=== PATIENT | male | born 1935 | race Caucasian/White ===

== ENCOUNTER 2022-09-04 07:00 | Inpatient (IN) | payer MEDICARE ==
[2022-09-04] MEDS ORDERED: Pantoprazole 40 MG VIAL ONE (07:37)
[2022-09-04 07:47] LABS: Hemoglobin 7.7 g/dL (13.5-17.5); Mean Corpuscular HGB CONC 32.6 g/dL (32.0-36.0); Mean Corpuscular Hemoglobin 29.2 pg (27.0-33.0); Mean Corpuscular Volume 89.4 fl (81.2-95.1); Mean Platelet Volume 12.3 fl (7.4-10.4); Platelet Count 132 10x3/uL (150-450); RBC Distribution Width 15.6 % (11.5-14.5); Red Blood Cell (RBC) Count 2.64 10x6/uL (4.32-5.72); White Blood Cell (WBC) Count 13.2 10x3/uL (3.5-10.5)
[2022-09-04 07:48] LABS: INR-International Normal Ratio 1.1; PTT 22.5 sec (22.0-33.0); Prothrombin Time 11.9 sec (9.5-12.1)
[2022-09-04 07:54] LABS: ALT (SGPT) 13 U/L (8-55); AST (SGOT) 22 U/L (5-34); Albumin 3.7 g/dL (3.4-4.8); Alkaline Phosphatase 53 U/L (40-110); Anion Gap 14 mmol/L (10-20); BUN (Urea Nitrogen) 23 mg/dL (8.4-25.7); Bilirubin, Total 0.7 mg/dL (0.2-1.2); Calc. Creatinine Clearance 0 mL/min (70-130); Calcium 8.6 mg/dL (7.8-10.44); Carbon Dioxide 25 mmol/L (23-31); Chloride 105 mmol/L (98-107); Estimated GFR 83; Globulin 2.5 g/dL (2.4-3.5); Glucose 181 mg/dL (83-110); Potassium 4.1 mmol/L (3.5-5.1); Protein, Total 6.2 g/dL (5.8-8.1); Sodium 140 mmol/L (136-145)
[2022-09-04 07:55] LABS: CK (CPK) 40 U/L (30-200); Lipase 50 U/L (8-78)
[2022-09-04 07:57] LABS: MDiff Complete? YES
[2022-09-04 08:14] LABS: CKMB 1.1 ng/mL (0-6.6)
[2022-09-04 08:23] LABS: Band 1 % (5-11); Eosinophils 2 % (0-10); Lymphocytes 13 % (21-51); Monocytes 11 % (0-10); Neutrophil 73 % (42-75)
[2022-09-04 08:25] LABS: Large Platelets SLIGHT; Platelet Morphology Comment Appears Adequate
[2022-09-04 08:27] LABS: RBC Morphology Normal
[2022-09-04] MEDS ORDERED: Artificial Tear Sol 15 ML BOT EA EYE PRN (08:28)
[2022-09-04] MEDS ORDERED: Ondansetron PF 4 MG/2 ML Vial IVP PRN (08:28)
[2022-09-04] MEDS ORDERED: EPINEPHrine 1 MG/ML AMP IVP PRN (08:28)
[2022-09-04] MEDS ORDERED: Sodium Chloride 0.65% Nasal 44 ML BOT EA NARE PRN (08:28)
[2022-09-04] MEDS ORDERED: Furosemide 20 MG/2 ML VIAL IVP SCH (08:30)
[2022-09-04] MEDS ORDERED: HUMAN PROTHROMBIN COMPLX IV SCH (09:00)
[2022-09-04] MEDS ORDERED: ADMIXTURE FEE IV SCH (09:00)
[2022-09-04 09:17] LABS: Troponin I 0.025 ng/mL (< 0.028)
[2022-09-04] MEDS ORDERED: Pantoprazole 80 MG in Sodium Chloride 0.9% 100 ML IVPB SCH (09:19)
[2022-09-04] MEDS ORDERED: Acetaminophen 325 MG TAB PO PRN (09:20)
[2022-09-04] MEDS ORDERED: Acetaminophen 650 MG Suppository PR PRN (09:20)
[2022-09-04] MEDS ORDERED: HumaLOG 300 UNITS/3 ML VIAL SC PRN ×2 (09:30)
[2022-09-04] MEDS ORDERED: Dextrose 50% Abboject 50 ML SYRINGE SLOW IVP PRN (09:30)
[2022-09-04] MEDS ORDERED: Dextrose 5% in Water 1,000 ML IV PRN (09:30)
[2022-09-04 10:23] LABS: SARS-CoV-2 NAA Rapid Test Not Detected (NotDetected)
[2022-09-04] MEDS ORDERED: diphenhydrAMINE 50 MG/ML VIAL IVP SCH (11:00)
[2022-09-04 11:20] LABS: Hemoglobin 8.9 g/dL (13.5-17.5); Platelet Count 118 10x3/uL (150-450)
[2022-09-04 11:28] LABS: Lactic Acid 1.8 mmol/L (0.5-2.2)
[2022-09-04 11:39] LABS: Troponin I 0.023 ng/mL (< 0.028)
[2022-09-04] MEDS ORDERED: Sodium Chloride 0.9% 500 ML IVPB SCH (15:45)
[2022-09-04] MEDS ORDERED: PROPOFOL 20 ML ONE (16:40)
[2022-09-04] MEDS ORDERED: Ketamine 50 MG/ML (10ML VIAL) ONE (16:45)
[2022-09-04] MEDS ORDERED: Succinylcholine 200 MG/10 ml SYRINGE FS ONE (17:06)
[2022-09-04] MEDS ORDERED: EPINEPHrine 1 MG/10 ML Abboject SYRINGE ONE (17:17)
[2022-09-04] MEDS ORDERED: Calcium Gluc 4.6 MEQ/10 ML (100 MG/ML) ONE (17:19)
[2022-09-04 20:36] VITALS: BP 108/61; TEMP 97.2
== END 2022-09-05 05:54 | disposition expired | DRG 378 ==
LOC: CSHERS 07:00 → CSHICU 09:52
PROVIDERS: ADMIT Family Medicine; ATTEND Family Medicine
PROC: 0W3P8ZZ Control Bleeding in Gastrointestinal Tract, Via Natural or Artificial Opening Endoscopic (ICD-10-PCS; principal; 2022-09-04)
PROC: 30233N1 Transfusion of Nonautologous Red Blood Cells into Peripheral Vein, Percutaneous Approach (ICD-10-PCS; 2022-09-04)
PROC: 30233K1 Transfusion of Nonautologous Frozen Plasma into Peripheral Vein, Percutaneous Approach (ICD-10-PCS; 2022-09-04)
PROC: 30283B1 Transfusion of Nonautologous 4-Factor Prothrombin Complex Concentrate into Vein, Percutaneous Approach (ICD-10-PCS; 2022-09-04)
DX: K26.4 Chronic or unspecified duodenal ulcer with hemorrhage (principal); D62 Acute posthemorrhagic anemia; I50.22 Chronic systolic (congestive) heart failure; Z66 Do not resuscitate; I25.10 Atherosclerotic heart disease of native coronary artery without angina pectoris; E11.51 Type 2 diabetes mellitus with diabetic peripheral angiopathy without gangrene; E78.5 Hyperlipidemia, unspecified; F17.210 Nicotine dependence, cigarettes, uncomplicated; I35.0 Nonrheumatic aortic (valve) stenosis; I48.0 Paroxysmal atrial fibrillation; F03.90 Unspecified dementia, unspecified severity, without behavioral disturbance, psychotic disturbance, mood disturbance, and anxiety; I11.0 Hypertensive heart disease with heart failure; R00.1 Bradycardia, unspecified; Z79.899 Other long term (current) drug therapy; Z79.01 Long term (current) use of anticoagulants; Z95.2 Presence of prosthetic heart valve; Z86.11 Personal history of tuberculosis; Z98.890 Other specified postprocedural states; Z95.5 Presence of coronary angioplasty implant and graft; Z79.84 Long term (current) use of oral hypoglycemic drugs; Z79.82 Long term (current) use of aspirin; Z83.3 Family history of diabetes mellitus; Z82.49 Family history of ischemic heart disease and other diseases of the circulatory system; Z20.822 Contact with and (suspected) exposure to COVID-19
CPT/HCPCS: 36415; 36416; 36430; 71045; 80053; 82550; 82553; 83605; 83690; 84484; 85025; 85610; 85730; 86850; 86900; 86901; 93005; 94760; A4215; C9113; J0171; J0610; J1200; J2405; J2704; J7030; J7168; P9016; P9059; U0002